=== PATIENT | female | born 1950 | race Caucasian/White ===

== ENCOUNTER 2020-06-17 07:16 | Inpatient (IN) | payer MEDICARE, OTHER ==
[~2020-06-17] VITALS: Ht 152.4 cm; Wt 45.4 kg
[~2020-06-17 07:16] MED LIST: ALPR.5 PO; BUPR150ER PO; FOSAMAX; HYDACE5 PO; NAPR500 PO; PROACE100 PO; RXHYDACE PO; TRAZ100 PO
[2020-06-17] MEDS ORDERED: Norco 5-325 Ta1 EACH PO (07:46)
[2020-06-17] MEDS ORDERED: TRAZ100 PO (07:46)
[2020-06-17] MEDS ORDERED: BUPR150ER PO (07:46)
[2020-06-17] MEDS ORDERED: CYCL10 PO (07:46)
[2020-06-17] MEDS ORDERED: NAPR500 PO (07:47)
[2020-06-17 07:51] LABS: BASOPHILS ABSOLUTE AUTO 0.06 K/mm3 (0.00-0.23); BASOPHILS PERCENT AUTO 1 % (0-2); EOSINOPHILS PERCENT AUTO 1 % (0-6); Hematocrit 45.5 % (33.0-51.0); Hemoglobin 15.1 g/dL (11.5-16.0); IMMATURE GRAN ABSOLUTE AUTO 0.03 K/mm3 (0.00-0.10); IMMATURE GRAN PERCENT AUTO 0 % (0-1); LYMPHOCYTES ABSOLUTE AUTO 2.01 K/mm3 (0.84-5.20); LYMPHOCYTES PERCENT AUTO 21 % (21-46); MONOCYTES ABSOLUTE AUTO 0.71 K/mm3 (0.16-1.47); MONOCYTES PERCENT AUTO 7 % (4-13); Mean Corpuscular HGB 31.1 pg (26.0-34.0); Mean Corpuscular HGB Conc 33.2 g/dL (31.5-36.5); Mean Corpuscular Volume 94 fL (80-100); Mean Platelet Volume 8.6 fL (9.1-12.4); NEUTROPHILS ABSOLUTE AUTO 6.84 K/mm3 (1.96-9.15); NEUTROPHILS PERCENT AUTO 70 % (41-73); Platelet Count 506 K/mm3 (150-400); RDW Coefficient Variation 12.3 % (11.7-14.2); RDW Standard Deviation 42.7 fL (35.1-46.3); Red Blood Cell Count 4.85 M/mm3 (3.80-5.20); White Blood Cell Count 9.75 K/mm3 (4.00-11.30)
[2020-06-17 07:55] LABS: Source, Urine Clean Catch
[2020-06-17 08:14] LABS: Alanine Aminotransfer (ALT/SGP 24 U/L (12-78); Albumin, Blood 3.3 g/dL (3.4-5.0); Alk Phos 55 U/L (50-136); Anion Gap 6 mmol/L (6-16); Aspartate Aminotrans (AST/SGOT 14 U/L (12-37); Bilirubin, Total 0.6 mg/dL (0.1-1.0); Blood Urea Nitrogen 11 mg/dL (8-24); Bun/Creatinine Ratio 12.8 (12.0-20.0); CO2, Blood 27 mmol/L (21-32); Calcium, Blood 9.2 mg/dL (8.5-10.1); Chloride, Blood 105 mmol/L (98-108); Creatinine, Blood 0.86 mg/dL (0.40-1.00); Globulin, Blood 3.4 g/dL (2.2-4.0); Glomerular Filtration Rate >60 (60-); Glucose, Blood 118 mg/dL (70-99); Potassium, Blood 3.7 mmol/L (3.5-5.5); Sodium, Blood 138 mmol/L (136-145); Total Protein, Blood 6.7 g/dL (6.4-8.2)
[2020-06-17 08:15] LABS: Appearance, Urine Clear (Clear); Bilirubin, Urine Neg (Neg); Blood, Urine Neg (Neg); Color, Urine Yellow (P-Yellow); Glucose Qualitative, Urine Neg (Neg); Ketones, Urine 1+ (Neg); Leukocyte Esterase, Urine Neg (Neg); Nitrite, Urine Neg (Neg); Protein, Urine 1+ (Neg); Urobilinogen, Urine NORM (Normal)
[2020-06-18 05:43] LABS: BASOPHILS ABSOLUTE AUTO 0.06 K/mm3 (0.00-0.23); BASOPHILS PERCENT AUTO 1 % (0-2); EOSINOPHILS ABSOLUTE AUTO 0.03 K/mm3 (0.00-0.68); EOSINOPHILS PERCENT AUTO 0 % (0-6); Hematocrit 42.1 % (33.0-51.0); Hemoglobin 13.9 g/dL (11.5-16.0); IMMATURE GRAN ABSOLUTE AUTO 0.03 K/mm3 (0.00-0.10); IMMATURE GRAN PERCENT AUTO 0 % (0-1); LYMPHOCYTES ABSOLUTE AUTO 1.49 K/mm3 (0.84-5.20); LYMPHOCYTES PERCENT AUTO 20 % (21-46); MONOCYTES ABSOLUTE AUTO 0.64 K/mm3 (0.16-1.47); MONOCYTES PERCENT AUTO 9 % (4-13); Mean Corpuscular HGB 31.2 pg (26.0-34.0); Mean Corpuscular Volume 94 fL (80-100); Mean Platelet Volume 8.8 fL (9.1-12.4); NEUTROPHILS ABSOLUTE AUTO 5.07 K/mm3 (1.96-9.15); NEUTROPHILS PERCENT AUTO 69 % (41-73); Platelet Count 470 K/mm3 (150-400); RDW Standard Deviation 42.3 fL (35.1-46.3); Red Blood Cell Count 4.46 M/mm3 (3.80-5.20); White Blood Cell Count 7.32 K/mm3 (4.00-11.30)
[2020-06-18 06:05] LABS: Alanine Aminotransfer (ALT/SGP 20 U/L (12-78); Albumin, Blood 2.7 g/dL (3.4-5.0); Albumin/Globulin Ratio 0.9 (0.8-1.8); Alk Phos 46 U/L (50-136); Anion Gap 6 mmol/L (6-16); Aspartate Aminotrans (AST/SGOT 11 U/L (12-37); Bilirubin, Total 0.6 mg/dL (0.1-1.0); Blood Urea Nitrogen 8 mg/dL (8-24); Bun/Creatinine Ratio 11.3 (12.0-20.0); CO2, Blood 26 mmol/L (21-32); Calcium, Blood 8.2 mg/dL (8.5-10.1); Chloride, Blood 110 mmol/L (98-108); Creatinine, Blood 0.71 mg/dL (0.40-1.00); Glomerular Filtration Rate >60 (60-); Glucose, Blood 90 mg/dL (70-99); Magnesium, Blood 1.9 mg/dL (1.6-2.4); Potassium, Blood 3.8 mmol/L (3.5-5.5); Sodium, Blood 142 mmol/L (136-145); Total Protein, Blood 5.7 g/dL (6.4-8.2)
[2020-06-19 05:46] LABS: Hematocrit 37.9 % (33.0-51.0); Hemoglobin 12.5 g/dL (11.5-16.0); Mean Corpuscular HGB 31.4 pg (26.0-34.0); Mean Corpuscular Volume 95 fL (80-100); Mean Platelet Volume 8.9 fL (9.1-12.4); Platelet Count 414 K/mm3 (150-400); RDW Standard Deviation 42.2 fL (35.1-46.3); Red Blood Cell Count 3.98 M/mm3 (3.80-5.20); White Blood Cell Count 5.78 K/mm3 (4.00-11.30)
[2020-06-19 06:13] LABS: Anion Gap 8 mmol/L (6-16); Blood Urea Nitrogen 12 mg/dL (8-24); Bun/Creatinine Ratio 16.7 (12.0-20.0); CO2, Blood 26 mmol/L (21-32); Calcium, Blood 8.3 mg/dL (8.5-10.1); Chloride, Blood 110 mmol/L (98-108); Creatinine, Blood 0.72 mg/dL (0.40-1.00); Glomerular Filtration Rate >60 (60-); Glucose, Blood 83 mg/dL (70-99); Magnesium, Blood 2.1 mg/dL (1.6-2.4); Potassium, Blood 3.5 mmol/L (3.5-5.5); Sodium, Blood 144 mmol/L (136-145)
== END 2020-06-20 13:18 | disposition home or self-care (01) | DRG 389 ==
LOC: ER 07:16 → SURS 10:31
PROVIDERS: Emergency Medicine; Internal Medicine; Nurse Practitioner Acute Care; ADMIT Internal Medicine
DX: K56.609 Unspecified intestinal obstruction, unspecified as to partial versus complete obstruction (principal); Z68.1 Body mass index [BMI] 19.9 or less, adult; F41.1 Generalized anxiety disorder; M19.90 Unspecified osteoarthritis, unspecified site
CPT/HCPCS: 36415; 74177; 74250; 80048; 80053; 83690; 83735; 85025; 85027; 99285-25; A9270; J2405; J3010; J7030; Q9967

== ENCOUNTER 2023-10-03 10:01 | Day surgery (SDC) | payer MEDICARE, OTHER ==
[2023-10-03] VITALS (15 sets, daily range): BP systolic 90–145; BP diastolic 45–78
[~2023-10-03] VITALS: Ht 154.9 cm; Wt 44.5 kg
[~2023-10-03 10:01] MED LIST changes: +ALEN70 PO; +Acetaminophen 500 MG Tab PO SCH; +CLIMARA1 EACH TOP; +CYCL10 PO; +CeFAZolin Sodium 2,000 MG in NS 100 ML IV SCH; +Chlorhexidine Mouth Care 15 ML UDC MT SCH; +EUTHYROX50 MCG PO; +LIOT5 PO; +Lactated Ringer's 1,000 ML IV SCH; +Norco 5-325 Ta1 EACH PO; +OxyCODONE HCL 10 MG TABCR PO SCH; +PROG100 PO; +TESTOSTERO200 MG/1 M IM; +TESTOSTERONE CREAM TOP
[2023-10-03] MEDS ORDERED: Ropivacaine 0.5% HCl/Pf 123.125 MG,EPINEPHrine HCL 0.25 MG,Ketorolac Tromethamine 15 MG... INFIL SCH (10:20)
[2023-10-03] MEDS ORDERED: TRANEXAMIC ACID IV SCH (10:20)
[2023-10-03] MEDS ORDERED: NS IV SCH (10:20)
--- NOTE | 2023-10-03 10:28 | NUR ---
History, Chart, Medications and Allergies reviewed before start of procedure. Pre-Op teaching done. Pt verbalizes understanding. Ambulatory in Day Surgery WITH STEADY GAIT. BELONGINGS REMOVED AND PLACED UNDER GURN. AT BEDSIDE.
[2023-10-03] MEDS ORDERED: FentaNYL Citrate 50 MCG/ML 2 ML Injection ONE (10:35)
[2023-10-03] MEDS ORDERED: Cyclobenzaprine HCl 10 MG Tab PO PRN (10:50)
[2023-10-03] MEDS ORDERED: DiphenhydrAMINE HCL 25 MG Cap PO PRN (10:55)
[2023-10-03] MEDS ORDERED: HYDROmorphone HCl/Pf 1MG SYR IV PRN (10:55)
[2023-10-03] MEDS ORDERED: OxyCODONE HCL 5 MG TAB PO PRN ×2 (11:00)
[2023-10-03] MEDS ORDERED: Bisacodyl 10 MG Supp PR PRN (11:00)
[2023-10-03] MEDS ORDERED: Metoclopramide HCl 5MG / ML 2ML Vial IV PRN (11:00)
[2023-10-03] MEDS ORDERED: Promethazine HCl 25 MG Tab PO PRN (11:00)
[2023-10-03] MEDS ORDERED: Magnesium Hydroxide Conc 10 ML UDC PO PRN (11:05)
[2023-10-03] MEDS ORDERED: Ondansetron HCl 2 MG / ML 2ML Vial IV PRN (11:05)
[2023-10-03] MEDS ORDERED: Lactated Ringer's 1,000 ML IV SCH (11:05)
--- NOTE | 2023-10-03 11:24 | NUR ---
10/03/23 1124 Alyssa Sawant SPINAL NERVE BLOCK COMPLETED BY OMID NORWOOD UPON ENTRY TO OR. PT TOLERATED WELL.
[2023-10-03] MEDS ORDERED: Ketorolac Tromethamine 15mg Vial IV SCH (12:00)
[2023-10-03] MEDS ORDERED: Ondansetron HCl 2 MG / ML 2ML Vial ONE (12:45)
--- NOTE | 2023-10-03 15:10 | NUR ---
ASSUMED CARE OF PT FROM CHRIS Nunez RN PT RESTING IN BED. ABLE TO WIGGLE BLE. STATES FULL SENSATION HAS NOT RETURNED YET. CALL LIGHT IN REACH. PT DENIES ANY NEEDS AT THIS TIME.
--- NOTE | 2023-10-03 15:21 | NUR ---
PT ARRIVED TO THE ROOM FROM PACU AT APPROXIMATELY 1320. PT ALERT AND ORIENTED UPON ARRIVAL. PT DENIES PAIN. R KNEE DRESSING C/D/I. PT HAS SMALL RAISED AREA ON HER BACK APPEARS TO BE R/T SPINAL ANESTHESIA, NEURO CHECKS WITHIN NORMAL LIMITES EXCEPT DECREASED MOVEMENT AND SENSATION TO BLE R/T SPINAL ANESTHESIA. PT EDUCATED TO USE THE CALL LIGHT. VSS.
--- NOTE | 2023-10-03 15:23 | NUR ---
SHIFT SUMMARY PT IS POD#0 FROM R TKA WITH DR. LOMBARDO. PT HAS NOT REQUIRED PAIN MEDICATION AT THIS TIME. PT IS REGAINING MOVEMENT OF BLE AND REPORTS IMPROVED SENSATION ALTHOUGH SHE STILL REPORTS SOME N/T. SMALL RAISED AREA AT SPINAL SITE APPEARS TO BE DECREASING IN SIZE. PT USES CALL LIGHT APPROPRIATELY. BEDSIDE REPORT GIVEN TO KENY KENNY.
[2023-10-03] MEDS ORDERED: Acetaminophen 500 MG Tab PO SCH (16:00)
[2023-10-03] MEDS ORDERED: buPROPion HCL 150 MG TAB.SR.12H PO SCH (17:15)
--- NOTE | 2023-10-03 17:15 | NUR ---
SUMMARY NO ACUTE CHANGES SINCE ASSUMING CARE OF PATIENT. WORKED WITH THERAPY. VOIDED. SITTING UP IN RECLINER W/FEET ELEVATED. MEDICATED PER ORDERS FOR 5/10 RLE PAIN. BUMP TO SPINAL SITE APPEARS TO BE GETTING SMALLER. PT HAS NO DEFICITS. CALL LIGHT IN REACH.
[2023-10-03] MEDS ORDERED: CeFAZolin Sodium 2,000 MG in NS 100 ML IV SCH (19:00)
[2023-10-03] MEDS ORDERED: Docusate Sodium 100 MG Cap PO SCH (21:00)
[2023-10-04 03:25] VITALS: BP 110/53
--- NOTE | 2023-10-04 04:23 | NUR ---
SUMMARY- NO ISSUES. PT PAIN MANAGED WELL. PT HAS BEEN AMBULATING AND VOIDING WITHOUT ISSUE. PT HAS BEEN RESTING QUIETLY. CALL LIGHT IN REACH.
[2023-10-04 04:41] LABS: BASOPHILS ABSOLUTE AUTO 0.08 K/mm3 (0.00-0.23); BASOPHILS PERCENT AUTO 1 % (0-2); EOSINOPHILS ABSOLUTE AUTO 0.35 K/mm3 (0.00-0.68); EOSINOPHILS PERCENT AUTO 4 % (0-6); Hematocrit 36.1 % (33.0-51.0); IMMATURE GRAN ABSOLUTE AUTO 0.02 K/mm3 (0.00-0.10); IMMATURE GRAN PERCENT AUTO 0 % (0-1); LYMPHOCYTES ABSOLUTE AUTO 1.48 K/mm3 (0.84-5.20); LYMPHOCYTES PERCENT AUTO 18 % (21-46); MONOCYTES ABSOLUTE AUTO 0.62 K/mm3 (0.16-1.47); MONOCYTES PERCENT AUTO 7 % (4-13); Mean Corpuscular HGB 31.7 pg (26.0-34.0); Mean Corpuscular HGB Conc 33.2 g/dL (31.5-36.5); Mean Corpuscular Volume 95 fL (80-100); Mean Platelet Volume 8.4 fL (9.1-12.4); NEUTROPHILS ABSOLUTE AUTO 5.81 K/mm3 (1.96-9.15); NEUTROPHILS PERCENT AUTO 70 % (41-73); Platelet Count 352 K/mm3 (150-400); RDW Standard Deviation 41.6 fL (35.1-46.3); Red Blood Cell Count 3.79 M/mm3 (3.80-5.20); White Blood Cell Count 8.36 K/mm3 (4.00-11.30)
[2023-10-04 05:00] LABS: Bun/Creatinine Ratio 17.5 (12.0-20.0); Calcium, Blood 7.7 mg/dL (8.5-10.1); Creatinine, Blood 0.69 mg/dL (0.40-1.00); Magnesium, Blood 2.1 mg/dL (1.6-2.4); Potassium, Blood 4.1 mmol/L (3.5-5.5)
[2023-10-04] MEDS ORDERED: Levothyroxine Sodium 0.05 MG Tab PO SCH (06:00)
[2023-10-04 07:13] VITALS: BP 107/62
[2023-10-04] MEDS ORDERED: Liothyronine Sodium 5 MCG Tab PO SCH (09:00)
[2023-10-04] MEDS ORDERED: Aspirin 81 MG Chew PO SCH (09:00)
[2023-10-04] MEDS ORDERED: APAP500 MG PO (09:23)
[2023-10-04] MEDS ORDERED: ASPI81CH PO (09:24)
[2023-10-04] MEDS ORDERED: OXAYDO5 M5 PO (09:24)
[2023-10-04 10:34] VITALS: BP 122/59
--- NOTE | 2023-10-04 10:56 | NUR ---
DISCHARGE PT PROVIDED WITH WRITTEN AND VERBAL DISCHARGE INSTRUCTIONS, PT VERBALIZED UNDERSTANDING. PAIN MANAGED WITH PO PAIN MEDICATION AT TIME OF DISCHARGE. PT CLEARED THERAPY, HAS BEEN ABLE TO VOID AND TOLERATED PO. PT'S BELONGINGS RETURNED. PT SENT HOME WITH ICE MACHINE AND CLEAN DRESSINGS. PT ASSISTED OUT IN W/C.
== END 2023-10-04 10:52 | disposition home or self-care (01) ==
LOC: ORSCMMR 10:01 → ORD 13:15 → ORSCMMR 13:15 → SURS 14:12 → ORD 16:00 → ORSCMMR 10-04 10:52
PROVIDERS: Orthopaedic Surgery
PROC: 0SRC0JA Replacement of Right Knee Joint with Synthetic Substitute, Uncemented, Open Approach (ICD-10-PCS; principal; 2023-10-03 11:00)
PROC: 8E0Y0CZ Robotic Assisted Procedure of Lower Extremity, Open Approach (ICD-10-PCS; principal; 2023-10-03 11:00)
DX: M17.11 Unilateral primary osteoarthritis, right knee (principal); F41.9 Anxiety disorder, unspecified; E03.9 Hypothyroidism, unspecified; Z79.899 Other long term (current) drug therapy
CPT/HCPCS: 27447; 0055T; 36415; 73560-RT; 80048; 83735; 85025; 97110; 97116; 97162; A9270; C1713; C1776; J0171; J0690; J0735; J1885; J2405; J2795; J3010; J7120

== ENCOUNTER 2024-12-26 19:32 | Emergency (ER) | payer OTHER, MEDICARE ==
[~2024-12-26] VITALS: Ht 154.9 cm; Wt 45.4 kg
[~2024-12-26 19:32] MED LIST changes: +APAP500 MG PO; +ASPI81CH PO; -Acetaminophen 500 MG Tab PO SCH; -CeFAZolin Sodium 2,000 MG in NS 100 ML IV SCH; -Chlorhexidine Mouth Care 15 ML UDC MT SCH; -Lactated Ringer's 1,000 ML IV SCH; +OXAYDO5 M5 PO; -OxyCODONE HCL 10 MG TABCR PO SCH
[2024-12-26 20:56] VITALS: BP 153/72
== END 2024-12-26 23:35 | disposition home or self-care (01) ==
LOC: ER 19:32
DX: S02.2XXA Fracture of nasal bones, initial encounter for closed fracture (principal); W01.190A Fall on same level from slipping, tripping and stumbling with subsequent striking against furniture, initial encounter; Z79.82 Long term (current) use of aspirin; Z79.890 Hormone replacement therapy; Z79.899 Other long term (current) drug therapy; Z88.8 Allergy status to other drugs, medicaments and biological substances
CPT/HCPCS: 70450; 70486; 99283-25